=== PATIENT | female | born 1965 | race Two or more races ===

== ENCOUNTER 2018-01-09 09:44 | Emergency (ER) | payer BC, MEDICAID ==
[~2018-01-09] VITALS: Ht 160 cm; Wt 95.3 kg
[2018-01-09 09:56] VITALS: BP 160/80
[2018-01-09 11:07] LABS: Basophils # (auto) 0.1 uL; Eosinophils # (auto) 0 uL; Hemoglobin 13.8 g/dL (12.2-16.2); Lymphocytes # (auto) 4.2 uL; Lymphocytes % (auto) 27.9 % (10.0-50.0); Monocytes # (auto) 0.9 uL
[2018-01-09 11:10] LABS: Basophils % (auto) 0.8 % (0.0-2.0); Eosinophils % (auto) 0.2 % (0.0-7.0); Hematocrit 41.1 % (36.0-46.0); Mean Corpuscular Hemoglobin 26.3 pg (28.0-32.0); Mean Corpuscular Hgb Conc. 33.5 g/dL (32.0-36.0); Mean Corpuscular Volume 78.3 fL (80.0-100.0); Monocytes % (auto) 6.1 % (0.0-12.0); Neutrophils # (auto) 9.9 uL; Platelet Count (auto) 290 10^3/uL (140-450); Red Blood Cells 5.25 10^6/uL (4.0-5.20); Red Cell Distribution Width 14.8 % (11.8-14.3); White Blood Cell 15.2 10^3/uL (4.4-10.8)
[2018-01-09 11:12] LABS: Urine Blood Trace /uL (Negative)
[2018-01-09 11:15] LABS: Urine Bacteria FEW /hpf (None Seen); Urine WBC 2 /hpf (0 - 5)
[2018-01-09 11:24] LABS: INR 1.02 (0.9-1.15); Partial Thromboplastin Time 24.6 sec (23.78-33.04); Prothrombin Time 10.9 sec (9.27-12.13)
[2018-01-09 11:33] LABS: Alanine Aminotransferase 50 U/L (13-56); Albumin 4.1 g/dL (3.4-5.0); Alkaline Phosphatase 68 U/L (45-117); Amylase 38 U/L (25-115); Anion Gap 15 (5-15); Aspartate Aminotransferase 34 U/L (15-37); BUN/Creatinine Ratio 15.4; Bilirubin, Total 1.7 mg/dL (0.2-1.0); Blood Urea Nitrogen 49 mg/dL (7-18); Calcium 9.2 mg/dL (8.5-10.1); Carbon Dioxide 24 mmol/L (21-32); Chloride 90 mmol/L (98-107); GFR African American 20 mL/min; GFR Non-African American 16 mL/min; Glucose 342 mg/dL (74-106); Lipase 62 U/L (73-393); Potassium 3.4 mmol/L (3.5-5.1); Sodium 129 mmol/L (136-145)
[2018-01-09] MEDS ORDERED: POTASSIUM EFFERVESENT TAB 25 MEQ PO ONE (12:30)
[2018-01-09] MEDS ORDERED: cefTRIAXone SOD 1,000 MG VL IM ONE (12:30)
[2018-01-09] MEDS ORDERED: LIDOCAINE 2% (LOCAL ANESTH.) PF 5ml SDV ONE (13:45)
== END 2018-01-09 14:36 | disposition home or self-care (01) ==
LOC: ER 09:44
DX: N39.0 Urinary tract infection, site not specified (principal); E11.9 Type 2 diabetes mellitus without complications; I10 Essential (primary) hypertension; Z90.49 Acquired absence of other specified parts of digestive tract
CPT/HCPCS: 36415; 74176; 80053; 81001; 81025; 82150; 83690; 83735; 84484; 85025; 85610; 85730; 93005; 96372; 99285; J0696; J2001